=== PATIENT | female | born 1985 | race Caucasian/White ===

== ENCOUNTER 2020-03-13 02:21 | Inpatient (IN) | payer MEDICAID ==
[~2020-03-13] VITALS: Ht 162.6 cm; Wt 125.0 kg
[2020-03-13 04:46] LABS: BASOPHILS % (AUTO) 0.2 % (0.0-2.0); EOSINOPHILS % (AUTO) 0.2 % (1.0-6.0); HEMATOCRIT 43.7 % (36-46); HEMOGLOBIN 14.8 g/dL (12.0-16.0); LYMPHOCYTES # (AUTO) 0.7 K/uL (1.0-4.8); LYMPHOCYTES % (AUTO) 7.3 % (22.0-44.0); MEAN CORPUSCULAR HEMOGLOBIN 29.8 pg (26.0-34.0); MEAN CORPUSCULAR HGB CONC 33.9 G/dL (31.0-37.0); MEAN CORPUSCULAR VOLUME 88 fL (80-100); MONOCYTES # (AUTO) 0.1 K/uL (0.1-1.0); MONOCYTES % (AUTO) 1.1 % (2.0-9.0); NEUTROPHILS # (AUTO) 9.2 K/uL (1.8-7.7); PLATELET COUNT (AUTO) 183 K/uL (150-450); RED BLOOD CELL COUNT(AUTO) 4.96 MIL/uL (4.00-5.20); RED CELL DISTRIBUTION WIDTH 13.9 % (11.5-14.5)
[2020-03-13 04:48] LABS: NEUTROPHILS % (AUTO) 91.2 % (40.0-70.0)
[2020-03-13 05:05] LABS: ANION GAP 13 mmol/L (8-16); CALCIUM, TOTAL 9.2 mg/dL (8.8-10.5); CARBON DIOXIDE 21 mmol/L (22-29); CHLORIDE 105 mmol/L (98-107); CREATININE 0.74 mg/dL (0.60-1.30); GLOMERULAR FILTR. RATE CALC > 60 mL/min (>60); GLUCOSE,RANDOM 149 mg/dL (70-110); POTASSIUM 3.9 mmol/L (3.5-5.1); SODIUM SERUM 139 mmol/L (136-145); UREA NITROGEN, BLOOD 21 mg/dL (7-18)
[2020-03-13 05:07] LABS: ALANINE AMINOTRANSFERASE 25 U/L (12-78); ALBUMIN 4.1 g/dL (3.4-5.0); ALKALINE PHOSPHATASE 64 U/L (46-116); ASPARTATE AMINOTRANSFERASE 15 U/L (15-37); BILIRUBIN,TOTAL 0.2 mg/dL (0.1-1.0); TOTAL PROTEIN, SERUM 7.3 g/dL (6.4-8.2)
[2020-03-13] MEDS ORDERED: ZOLPIDEM TARTRATE 10 MG TABLET PO PRN (05:15)
[2020-03-13 10:59] VITALS: BP 131/76
[2020-03-13] MEDS ORDERED: ONDANSETRON HCL 4 MG TABLET PO PRN (11:15)
[2020-03-13] MEDS: LORazepam 2 MG TABLET PO PRN (11:36)
[2020-03-13] MEDS: HALOPERIDOL 5 MG TABLET PO PRN (11:36)
[2020-03-13 17:01] VITALS: BP 111/64
[2020-03-13 18:06] VITALS: BP 111/64
[2020-03-14 08:27] VITALS: BP 120/79
[2020-03-14 16:55] VITALS: BP 125/85
[2020-03-15] MEDS: HALOPERIDOL 5 MG TABLET PO PRN (13:43)
[2020-03-15] MEDS: LORazepam 2 MG TABLET PO PRN (13:43)
[2020-03-15] MEDS: RisperiDONE 0.5 MG TABLET PO SCH (16:46)
[2020-03-15 17:08] VITALS: BP 98/62
[2020-03-16 07:04] LABS: CHOL/HDL RATIO 4.4 (3.9-5.7)
[2020-03-16] MEDS: RisperiDONE 0.5 MG TABLET PO SCH ×2 (08:38→16:46)
[2020-03-16] MEDS ORDERED: RISP0.5T61 PO (16:28)
[2020-03-17] MEDS ORDERED: NICOTINE 21 MG/24 HOUR PATCH TD SCH (09:00)
== END 2020-03-16 17:00 | disposition home or self-care (01) | DRG 885 ==
LOC: EMS 02:21 → 3EI 07:55
PROVIDERS: ADMIT Psychiatry & Neurology Psychiatry; ATTEND Psychiatry & Neurology Child & Adolescent Psychiatry
DX: F25.9 Schizoaffective disorder, unspecified (principal); R45.851 Suicidal ideations; F15.90 Other stimulant use, unspecified, uncomplicated; F31.9 Bipolar disorder, unspecified; I10 Essential (primary) hypertension; R00.1 Bradycardia, unspecified; Z90.710 Acquired absence of both cervix and uterus; Z91.14 Patient's other noncompliance with medication regimen
CPT/HCPCS: G0480; Q0162